=== PATIENT | male | born 1970 | race Caucasian/White ===

== ENCOUNTER 2020-01-15 07:09 | Inpatient (IN) ==
[2020-01-15] MEDS ORDERED: Ipratropium/Albuterol Neb 3 ML IH ONE (07:23)
[2020-01-15] MEDS ORDERED: *HR* Methadone 10 MG TABLET PO ONE (07:24)
[2020-01-15] MEDS ORDERED: Famotidine 20 MG/2 ML VIAL IVP ONE (07:24)
[2020-01-15] MEDS ORDERED: CefOXitin 1,000 MG VIAL ONE ×2 (07:28→11:06)
[2020-01-15] MEDS ORDERED: cefOXitin 2,000 MG in Water for inj. (sterile) 20 ML IVP ONE (07:36)
[2020-01-15] MEDS ORDERED: Ringers Solution, Lactated 1,000 ML IVC SCH (07:45)
[2020-01-15] MEDS ORDERED: Ondansetron 4 MG/2 ML VIAL IVP PRN ×2 (07:59→15:46)
[2020-01-15] MEDS ORDERED: *HR* Promethazine 25 MG/ML VIAL IVP PRN (07:59)
[2020-01-15] MEDS ORDERED: *HR* HYDROmorphone (PF) 1 MG/ML SYRINGE IVP PRN ×2 (07:59→15:46)
[2020-01-15] MEDS ORDERED: *HR* Labetalol 20 MG/4 ML SYRINGE IVP PRN (07:59)
[2020-01-15] MEDS ORDERED: Dexamethasone 4 MG/ML VIAL ONE (09:03)
[2020-01-15] MEDS ORDERED: *HR* Remifentanil 1 MG VIAL IVP ONE (11:33)
[2020-01-15] MEDS ORDERED: Naloxone 0.4 MG/ML INJ IVP PRN (15:46)
[2020-01-15] MEDS: Acetaminophen IV 1,000 MG/100 ML INFUS..BTL IVPB SCH (17:42)
[2020-01-15] MEDS: cefOXitin 1,000 MG in Water for inj. (sterile) 10 ML IVP SCH (17:43)
[2020-01-15] MEDS: 0.9 % Sodium Chloride 1,000 ML IVC SCH (17:44)
[2020-01-15] MEDS: Ketorolac 30 MG/ML VIAL IVP SCH (17:45)
[2020-01-16] MEDS: Acetaminophen IV 1,000 MG/100 ML INFUS..BTL IVPB SCH ×4 (01:18→18:26)
[2020-01-16] MEDS: cefOXitin 1,000 MG in Water for inj. (sterile) 10 ML IVP SCH ×2 (01:19→08:50)
[2020-01-16] MEDS: Ketorolac 30 MG/ML VIAL IVP SCH ×4 (01:19→18:26)
[2020-01-16] MEDS: 0.9 % Sodium Chloride 1,000 ML IVC SCH ×2 (05:55→18:25)
[2020-01-16 06:09] LABS: Basophils % 0.1 %; Hematocrit 42.4 % (37.5-50.1); Hemoglobin 14.1 g/dL (12.9-16.9); Immature Granulocytes % 0.3 % (0-4); Lymphocytes % 7.3 %; Mean Corpuscular HGB Conc 33.3 g/dL (31.6-35.5); Mean Corpuscular Hemoglobin 30.7 pg (28.0-33.3); Mean Corpuscular Volume 92.4 fL (83.0-100.0); Mean Platelet Volume 11.5 fL (9.4-12.4); Monocytes # 1.3 K/mcL (0.0-1.3); Monocytes % 8.9 %; Neutrophils # 11.8 K/mcL (1.6-8.9); Platelet Count 200 K/mcL (140-400); Red Blood Count 4.59 M/mcL (4.19-5.50); Red Cell Distribution Width 13.6 % (11.5-14.5); Segmented Neutrophils % 83.4 %; White Blood Count 14.2 K/mcL (4.3-11.1)
[2020-01-16 06:28] LABS: BUN/Creatinine Ratio 14 (6-26); Blood Urea Nitrogen 13 mg/dL (6-20); Calcium 8.5 mg/dL (8.6-10.3); Carbon Dioxide 27 mEq/L (23-29); Chloride 110 mEq/L (98-107); Glucose 136 mg/dL (70-105); Osmolality,Calculated 296 (280-300); Potassium 4.2 mEq/L (3.5-5.1); Sodium 142 mEq/L (136-145); eGFR For African Americans > 60 (> 60); eGFR For Non-African Americans > 60 (> 60)
[2020-01-16] MEDS: Pantoprazole 40 MG VIAL IVP SCH (08:50)
[2020-01-16] MEDS: *HR* Heparin 5,000 UNIT/ML VIAL SQ SCH ×2 (12:44→18:27)
[2020-01-17] MEDS: Ketorolac 30 MG/ML VIAL IVP SCH ×4 (00:17→17:31)
[2020-01-17] MEDS: Acetaminophen IV 1,000 MG/100 ML INFUS..BTL IVPB SCH ×4 (00:17→17:30)
[2020-01-17] MEDS: *HR* Heparin 5,000 UNIT/ML VIAL SQ SCH ×2 (05:30→17:31)
[2020-01-17] MEDS ORDERED: Pantoprazole 40 MG VIAL ONE (09:50)
[2020-01-17] MEDS ORDERED: Ketorolac 30 MG/ML VIAL ONE (09:50)
[2020-01-17 14:24] LABS: Basophils % 0.1 %; Immature Granulocytes % 0.3 % (0-4); Lymphocytes # 2.4 K/mcL (0.6-4.6); Lymphocytes % 16.3 %; Mean Corpuscular HGB Conc 32.5 g/dL (31.6-35.5); Mean Corpuscular Hemoglobin 30.4 pg (28.0-33.3); Mean Corpuscular Volume 93.5 fL (83.0-100.0); Mean Platelet Volume 11.7 fL (9.4-12.4); Monocytes # 1.4 K/mcL (0.0-1.3); Monocytes % 9.6 %; Neutrophils # 10.8 K/mcL (1.6-8.9); Platelet Count 212 K/mcL (140-400); Red Blood Count 4.28 M/mcL (4.19-5.50); Red Cell Distribution Width 13.9 % (11.5-14.5); Segmented Neutrophils % 73.7 %; White Blood Count 14.6 K/mcL (4.3-11.1)
[2020-01-17] MEDS: 0.9 % Sodium Chloride 1,000 ML IVC SCH ×2 (16:06→22:25)
[2020-01-17] MEDS: Pantoprazole 40 MG VIAL IVP SCH (16:07)
[2020-01-18] MEDS: Ketorolac 30 MG/ML VIAL IVP SCH ×3 (00:50→13:13)
[2020-01-18] MEDS: Acetaminophen IV 1,000 MG/100 ML INFUS..BTL IVPB SCH ×3 (00:51→13:13)
[2020-01-18 02:12] LABS: BUN/Creatinine Ratio 14 (6-26); Blood Urea Nitrogen 13 mg/dL (6-20); Calcium 8.8 mg/dL (8.6-10.3); Carbon Dioxide 28 mEq/L (23-29); Chloride 109 mEq/L (98-107); Glucose 96 mg/dL (70-105); Magnesium 2.3 mg/dL (1.6-2.6); Osmolality,Calculated 296 (280-300); Phosphorous 1.7 mg/dL (2.7-4.5); Sodium 143 mEq/L (136-145); eGFR For African Americans > 60 (> 60); eGFR For Non-African Americans > 60 (> 60)
[2020-01-18] MEDS: *HR* Heparin 5,000 UNIT/ML VIAL SQ SCH (06:09)
[2020-01-18] MEDS: Pantoprazole 40 MG VIAL IVP SCH (07:59)
[2020-01-18 11:03] VITALS: BP 129/84
[2020-01-18] MEDS: 0.9 % Sodium Chloride 1,000 ML IVC SCH (13:13)
== END 2020-01-18 14:10 | disposition home or self-care (01) | DRG 331 ==
LOC: SAMDAY 07:09 → 3ANU 15:43
PROVIDERS: ADMIT Surgery; ATTEND Surgery